=== PATIENT | male | born 1980 | race Caucasian/White ===

== ENCOUNTER 2022-08-05 15:01 | Emergency (ER) | payer MEDICAID, SELFPAY ==
[2022-08-05 15:39] VITALS: BP 182/108; PULSE 74; RESP 16; TEMP 36.6; O2SAT 96; BMI 40.5
--- NOTE | 2022-08-05 15:48 | XRR_ITS ---
PROCEDURE INFORMATION: Exam: XR Chest Exam date and time: 08/05/2022 5:17 PM Age: 42 years old Clinical indication: Cough; Additional info: Cough, dyspnea TECHNIQUE: Imaging protocol: Radiologic exam of the chest. Views: 1 view. COMPARISON: CR XR chest 1V [id number] 07/02/2017 5:21 AM FINDINGS: Lungs: See Heart/Mediastinum finding. Pleural spaces: Unremarkable. No pleural effusion. No pneumothorax. Heart/Mediastinum: Cardiomegaly and mild pulmonary vascular congestion. Bones/joints: Unremarkable. XR/XR chest 1V portable [id number] IMPRESSION: Cardiomegaly and mild pulmonary vascular congestion.
--- NOTE | 2022-08-05 15:50 | W.ED.COVID ---
HPI - COVID General: Chief Complaint: COVID symptoms Stated Complaint: came from [place] [facility], covid+, heart prob Time Seen by Provider: 08/05/22 18:05 Source: patient Mode of arrival: ambulatory Limitations: no limitations History of Present Illness: 42-year-old male states he seen at [facility] and diagnosed with COVID last night states for the last 2 days he has had cough fever along with some dyspnea he states that they attempted to do a CT angio of his chest yesterday to rule out a PE he states they were never able to get an IV so he had left after multiple times of IV states today's to continue to have some dyspnea he is well-appearing here he has had some slight pain and some burning sensation in his chest. COVID 19 common symptoms: positive fever(s), chills and body aches; negative dyspnea, headache(s), throat pain, nausea, vomiting or diarrhea COVID 19 other sytmptoms: negative chest pain COVID Results: No Data to Display Review of Systems Const: Reports: fever(s), chills and body aches Eyes: Denies: blurry vision or eye discomfort ENMT: Denies: throat pain or dental pain Card: Denies: chest pain Resp: Denies: dyspnea GI: Denies: abdominal pain, nausea, vomiting or diarrhea : Denies: dysuria Musc: Denies: neck pain or back pain Skin/Breast: Denies: rash Neuro: Denies: headache(s) Psych: Denies: depression Perico/Lymph: Denies: easy bruising All/Imm: Denies: urticaria PFS ED PFSH: Medical History (Updated 08/05/22 @ 18:55 by Tena Fraser MD) No pertinent past medical history Social History (Updated 08/05/22 @ 18:47 by Tena Fraser MD) Substance/Drug Use: unknown Physical Exam Const: COMMON NORMALS: no acute distress, patient oriented x3 and healthy appearing HENMT: COMMON NORMALS: normocephalic and atraumatic HEAD & SCALP: normocephalic and atraumatic Eye: COMMON NORMALS: Equal, round and reactive pupils present and EOMs intact bilaterally PUPIL: Yes Equal, round and reactive pupils present Neck/C-Spine: COMMON NORMALS: full ROM and supple Chest: COMMONS NORMALS: normal inspection of the chest and normal palpation of entire chest wall Resp: COMMON NORMALS: normal respiratory effort, No retractions, No use of accessory muscles and clear to auscultation bilaterally AUSCULTATION: clear to auscultation bilaterally Cardio: COMMON NORMALS: regular rate, regular rhythm and No murmurs present (Cardio) RATE: regular rate RHYTHM: regular rhythm GI: COMMON NORMALS: Normal to inspection, nondistended, normoactive bowel sounds present, Soft to palpation, non-tender and no masses PALPATION: Yes Soft to palpation Extremity: COMMON NORMALS: normal to inspection and full ROM Neuro: COMMON NORMALS: patient oriented x3, moves all extremities and no focal motor deficits Psych: COMMON NORMALS: mental status grossly normal, Normal thought process present and cooperative THOUGHT PROCESS: Normal thought process present Skin: COMMON NORMALS: no rashes or lesions noted and no wounds GENERAL SKIN EXAM: no rashes or lesions noted Course Vital Signs: Vital signs: Vital Signs Temperature 97.9 F 08/05/22 15:39 Pulse Rate 74 08/05/22 15:39 Respiratory Rate 16 08/05/22 15:39 Blood Pressure 182/108 08/05/22 15:39 Pulse Oximetry 96 08/05/22 15:39 Oxygen Delivery Me thod 08/05/22 15:39 MDM - COVID Medical Decision Making Patient presents with cough fever some dyspnea patient tested positive for COVID yesterday he is well-appearing here troponins normal he is in no distress his D-dimer is negative he is stable for discharge she is to follow-up with PCP and return if worsening he understands agrees to plan. Lab Data : 08/05/22 16:10 08/05/22 16:10 Radiology Impressions Chest X-Ray 08/05/22 15:48 IMPRESSION: Cardiomegaly and mild pulmonary vascular congestion. Laboratory Results WBC 7.5 10^3/uL (4.0-10.0) 08/05/22 16:10 RBC 4.81 10^6/uL (4.1-5.3) 08/05/22 16:10 Hgb 14.5 g/dL (11.7-16.6) 08/05/22 16:10 Hct 40.5 % (42.0-52.0) L 08/05/22 16:10 MCV 84.2 fl (80-94) 08/05/22 16:10 MCH 30.1 pg (28.0-34.0) 08/05/22 16:10 MCHC 35.8 g/dL (30.0-36.0) 08/05/22 16:10 RDW 13.1 % (12.1-15.1) 08/05/22 16:10 Plt Count 127 10^3/cmm (130-400) L 08/05/22 16:10 MPV 10.6 fL (7.4-10.4) H 08/05/22 16:10 Neut % (Auto) 68.6 % 08/05/22 16:10 Lymph % (Auto) 24.7 % 08/05/22 16:10 [place] % (Auto) 6.4 % 08/05/22 16:10 Eos % (Auto) 0.0 % 08/05/22 16:10 Baso % (Auto) 0.0 % 08/05/22 16:10 Neut # (Auto) 5.13 10^3/uL (1.8-7.7) 08/05/22 16:10 Lymph # (Auto) 1.9 10^3/uL (0.8-4.8) 08/05/22 16:10 [place] # (Auto) 0.5 10^3/uL (0.2-0.9) 08/05/22 16:10 Eos # (Auto) 0.0 10^3/uL (0.0-0.8) 08/05/22 16:10 Baso # (Auto) 0.0 10^3/uL (0.0-0.1) 08/05/22 16:10 Nucleated RBC % (auto) 0 % 08/05/22 16:10 Nucleated RBCs # 0.0 /100WBC 08/05/22 16:10 D-Dimer 0.37 ug/mIFEU (0-0.59) 08/05/22 16:10 D-Dimer Cancelled 08/05/22 16:10 Sodium 139 mmol/L (136-145) 08/05/22 16:10 Potassium 3.5 mmol/L (3.5-5.1) 08/05/22 16:10 Chloride 99 mmol/L (98-107) 08/05/22 16:10 Carbon Dioxide 28 mmol/L (22-29) 08/05/22 16:10 Anion Gap 15.5 (5-19) 08/05/22 16:10 BUN 15 mg/dL (6-20) 08/05/22 16:10 Creatinine 0.7 mg/dL (0.7-1.2) 08/05/22 16:10 GFR Calculation 124.9 mL/min (90-130) 08/05/22 16:10 Glucose 145 mg/dL (65-115) H 08/05/22 16:10 Calculated Osmolality 291 mOsm/kg (285-295) 08/05/22 16:10 Calcium 8.5 mg/dL (8.5-10.5) 08/05/22 16:10 Total Bilirubin 0.3 mg/dL (0.15-1.2) 08/05/22 16:10 AST 55 U/L (0-40) H 08/05/22 16:10 ALT 142 U/L (0-41) H 08/05/22 16:10 Alkaline Phosphatase 59 U/L (40-130) 08/05/22 16:10 Troponin T Baseline 11 ng/L (0-15) 08/05/22 16:10 C-Reactive Protein 11.7 mg/L (0.0-4.9) H 08/05/22 16:10 NT-Pro-B Natriuret Pep 976 pg/mL (0-125) H 08/05/22 16:10 Total Protein 7.4 g/dL (6.6-8.7) 08/05/22 16:10 Albumin 4.0 g/dL (3.5-5.2) 08/05/22 16:10 Globulin 3.4 g/dL (1.3-4.6) 08/05/22 16:10 Procalcitonin 0.05 ng/mL (0-0.5) 08/05/22 16:10 No Data to Display EKG Data EKG 1: I personally reviewed and interpreted this EKG as follows: EKG interpretation date: 08/05/22 EKG interpretation time: 18:41 Interpretation: nsr hr [address] or t wave abnormalities qrs 102 qtc 431 Discharge Plan Discharge Patient Disposition: Home Clinical Impression: COVID-19 Discharge Orders: Discharge ED (Routine); Ordered 10/31/22 Ordered By: Tena Fraser Discharge Diet: Advance as tolerated Discharge Activity: Resume usual activity Patient Instructions: COVID-19 (Coronavirus Disease 2019) (ED) Coding Level of Care Code ED [employer]ist for [employer] Fwd Exam Comprehensive
[2022-08-05 16:35] LABS: Hematocrit 40.5 % (42.0-52.0); Hemoglobin 14.5 g/dL (11.7-16.6); Lymphocytes # 1.9 10^3/uL (0.8-4.8); Lymphocytes % 24.7 %; Mean Corpuscular HGB Conc 35.8 g/dL (30.0-36.0); Mean Corpuscular Hemoglobin 30.1 pg (28.0-34.0); Mean Corpuscular Volume 84.2 fl (80-94); Mean Platelet Volume 10.6 fL (7.4-10.4); Monocytes # 0.5 10^3/uL (0.2-0.9); Monocytes % 6.4 %; Neutrophils # 5.13 10^3/uL (1.8-7.7); Neutrophils % 68.6 %; Nucleated Red Blood Cells % 0 %; Platelet Count 127 10^3/cmm (130-400); Red Blood Count 4.81 10^6/uL (4.1-5.3); Red Cell Distribution Width 13.1 % (12.1-15.1); White Blood Count 7.5 10^3/uL (4.0-10.0)
[2022-08-05 17:02] LABS: Troponin(5th) Baseline 11 ng/L (0-15)
[2022-08-05 17:06] LABS: NT Pro B Type Natriuretic Pept 976 pg/mL (0-125); Procalcitonin 0.05 ng/mL (0-0.5)
[2022-08-05 17:17] LABS: Alanine Aminotransferase 142 U/L (0-41); Alkaline Phosphatase 59 U/L (40-130); Anion Gap 15.5 (5-19); Aspartate Amino Transferase 55 U/L (0-40); Blood Urea Nitrogen 15 mg/dL (6-20); C Reactive Protein 11.7 mg/L (0.0-4.9); Calcium 8.5 mg/dL (8.5-10.5); Carbon Dioxide 28 mmol/L (22-29); Chloride 99 mmol/L (98-107); Globulin 3.4 g/dL (1.3-4.6); Glomerular Filtration Rate 124.9 mL/min (90-130); Glucose 145 mg/dL (65-115); Osmolality Calculated 291 mOsm/kg (285-295); Potassium 3.5 mmol/L (3.5-5.1); Sodium 139 mmol/L (136-145); Total Bilirubin 0.3 mg/dL (0.15-1.2); Total Protein 7.4 g/dL (6.6-8.7)
--- NOTE | 2022-08-05 18:41 | ECG_ITS ---
[facility] Test Date: 2022-08-05 Pat Name: Chris Hoffman Department: Room: Gender: Male [place] [employer]: : 1980 Requested By: Jair Hicks Order Number: [id number] Isabel MD: Carmine Burroughs M.D. Measurements Intervals [place] Rate: 69 P: 21 OR: 201 QRS: 31 QRSD: 102 T: 62 QT: 413 QTc: 443 Interpretive Statements SINUS RHYTHM NONSPECIFIC T-WAVE ABNORMALITY Compared to ECG 09/17/2018 14:33:34 T-wave abnormality now present Electronically Signed On 08-06-2022 21:51:07 CDT by Carmine Burroughs M.D. [id number]
[2022-08-05] MEDS: FUROsemide 10 mg/mL SDV 4mL 40 MG IVP (19:04)
[2022-08-05] MEDS: dexamethasone 4 mg/mL INJ 8 MG IVP (19:05)
[2022-08-05 19:54] LABS: D Dimer 0.37 ug/mIFEU (0-0.59)
[2022-08-05 20:00] VITALS: O2SAT 95
[2022-08-05] MEDS: albuterol 8 gm MDI 2 PUFF INHALATION (20:33)
[2022-08-05 20:35] VITALS: BP 174/114; PULSE 63; RESP 17; TEMP 36.7; O2SAT 95
[2022-08-05 20:36] VITALS: PULSE 84; RESP 18; O2SAT 95
== END 2022-08-05 20:37 | disposition home or self-care (01) ==
PROVIDERS: Nurse Practitioner Family; Emergency Provider Emergency Medicine
DX: U07.1 COVID-19 (principal)
CPT/HCPCS: 36415; 71045; 80053; 83880; 84145; 84484; 85025; 85378; 86140; 93005; 94640; 96374; 96375; 99285; J1100; J1940; J3535